=== PATIENT | female | born 1945 | race African-American/Black ===

== ENCOUNTER → 2017-10-05 | Outpatient (CLI) | payer MEDICARE, MEDICAID ==
[~2017-10-05] MED LIST: ACET-2178 PO; CALC0.253 PO; CARB200T PO; CLOP75TA16 PO; COLC0.6T66 PO; FURO-151 PO; KCL PO; LEVO200T8 PO; NAPR-681 PO; OMEG-31 PO; PARO40TA75 PO; PHEN100C4 PO; RANI150C12 PO; ROSU10TA PO; SUCR1TAB PO; TOPA200 PO
== END | disposition home or self-care (01) ==
LOC: RAD 16:36
PROVIDERS: ATTEND Internal Medicine Geriatric Medicine
DX: Z01.818 Encounter for other preprocedural examination (principal); I51.7 Cardiomegaly; R06.02 Shortness of breath
CPT/HCPCS: 71046

== ENCOUNTER → 2017-10-07 | Outpatient (CLI) | payer MEDICARE, MEDICAID ==
[2017-10-07 15:14] LABS: BG BASE EXCESS 1.2 mmol/L (-2.0-2.0); BG DEOXYHEMOGLOBIN 4.7 % (0.0-5.0); BG METHEMOGLOBIN 0.3 % (0.0-1.5); BG OXYGEN SATURATION 95.2 % (92.0-98.5); BG PO2 78.6 mmHg (75.0-100.0); BG SAMPLE SITE RIGHT RADIAL; BG VENT MODE ROOM AIR
== END | disposition home or self-care (01) ==
LOC: PF 14:34
PROVIDERS: ATTEND Internal Medicine Geriatric Medicine
DX: Z01.812 Encounter for preprocedural laboratory examination (principal); J44.9 Chronic obstructive pulmonary disease, unspecified
CPT/HCPCS: 36600; 82375; 82805

== ENCOUNTER → 2024-02-23 | Outpatient (CLI) | payer MEDICARE, MEDICAID ==
[~2024-02-23] MED LIST changes: -ACET-2178 PO; +CLOP-31 PO; -CLOP75TA16 PO; +CRES10 PO; -ROSU10TA PO; +TOPUD PO
== END | disposition home or self-care (01) ==
LOC: CT 15:50
PROVIDERS: ATTEND Internal Medicine Geriatric Medicine
DX: M16.11 Unilateral primary osteoarthritis, right hip (principal); R22.1 Localized swelling, mass and lump, neck; M25.551 Pain in right hip; M47.812 Spondylosis without myelopathy or radiculopathy, cervical region
CPT/HCPCS: 70490; 73502